=== PATIENT | male | born 1945 | race Caucasian/White ===

== ENCOUNTER 2018-04-07 12:26 | Inpatient (IN) ==
--- NOTE | 2018-04-07 14:11 | Emergency Department Note ---
Disposition Clinical Impression: Thrombocytopenia Leukopenia Qualifiers: Leukopenia type: unspecified Qualified Code(s): D72.819 - Decreased white blood cell count, unspecified UTI (urinary tract infection) Qualifiers: Urinary tract infection type: site unspecified Hematuria presence: without hematuria Qualified Code(s): N39.0 - Urinary tract infection, site not specified Sepsis Qualifiers: Sepsis type: sepsis due to unspecified organism Qualified Code(s): A41.9 - Sepsis, unspecified organism Disposition: Admitted As Inpatient Condition: Good Time of Disposition: 19:03 General Adult HPI - General Chief complaint: ED Shortness of Breath/Dyspnea Stated complaint: hiccups x 2 months. Time Seen by Provider: 04/07/18 13:13 Source: family, EMS Mode of arrival: ambulatory Limitations: no limitations Nursing Notes Reviewed: Yes Vital Signs Reviewed: Yes - History of Present Illness HPI Narrative: Patient is 72-year-old male that presents the emergency department with reports of hiccups. Patient states he has been having intermittent hiccups for the past 2-3 months. Patient states when he gets hiccups become short of breath for approximately 3 seconds. Patient states that she does not have any active chest pain or shortness of breath. at bedside states that his urine has also been smelling strong. States that he has had a history of urinary tract infections. Pain Scale: 10 - Related Data Home Medications Medication Instructions Recorded Confirmed Alfuzosin HCl [Uroxatral] 10 mg PO DAILY 04/29/16 04/07/18 CycloSPORINE, Mod (Neoral) [Neoral] 50 mg PO Q12HR 04/29/16 04/07/18 Ethambutol [Myambutol] 400 mg PO QPM 04/07/18 04/07/18 Ethambutol [Myambutol] 600 mg PO QAM 04/07/18 04/07/18 Gabapentin [Neurontin] 100 mg PO HS 04/07/18 04/07/18 Ondansetron HCl [Zofran] 4 mg PO Q8H PRN 04/07/18 04/07/18 OxyCODONE Immed Rel [Roxicodone 10 10 mg PO Q6H 04/07/18 04/07/18 MG] Rifabutin [Mycobutin] 300 mg PO DAILY 09/17/18 09/17/18 Valganciclovir HCl [Valcyte] 450 mg PO BID 04/07/18 04/07/18 Warfarin [Coumadin] 1 mg PO DAILY 04/07/18 04/07/18 Allergies Allergy/AdvReac Type Severity Reaction Status Date / Time No Known Allergies Allergy Verified 04/07/18 18:29 All systems ED: reviewed and negative except as stated. 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 Absent: respiratory distress, wheezes - Cardiovascular Cardiovascular exam: Present: regular rate, normal rhythm, normal heart sounds, +S1, +S2 - Abdominal Exam Abdominal exam: Present: soft, Non-Tender, normal bowel sounds - Neurological Exam Neurological exam: Present: alert, oriented X3 - Psychiatric Psychiatric exam: Present: normal affect, normal mood - Skin Skin exam: Present: warm, dry, intact Course Vital Signs Temperature 97.7 F 04/07/18 12:49 Pulse Rate 102 04/07/18 12:49 Respiratory Rate 15 04/07/18 12:49 Blood Pressure 109/74 04/07/18 12:49 O2 Sat by Pulse Oximetry 99 04/07/18 12:49 Temperature 98.6 F 04/09/18 06:53 Pulse Rate 93 04/09/18 06:53 Respiratory Rate 16 04/09/18 06:53 Blood Pressure 100/68 04/09/18 06:53 O2 Sat by Pulse Oximetry 99 04/09/18 06:53 Oxygen Delivery Oxygen Delivery Room Air Medical Decision Making - MDM Narrative Medical decision making narrative: Due the patient's into the emergency department with shortness of breath after hiccups we will obtain basic laboratory testing including CBC, BMP, chest x-ray and EKG. We will also obtain a urinalysis due to the spouse reporting there is been a strong odor to the patient's urine. Patient has thrombocytopenia. His platelets are less than 100 which has not been the case before. He has a white blood cell count less than 2 which is never been the case in the past. We will add a lactic acid. We will also provide the patient with IV fluid resuscitation. Lactic acid was 1.1. The patient is a evidence of urinary tract infection. Patient does meet sepsis criteria having intermittent tachycardia with a white blood cell count less than 4 and a source of infection in his urine. Patient will be given a dose or Rocephin and the patient will be admitted to the hospital for further evaluation and management. I spoke with the admitting hospitalist Dr. Nevarez and he has accepted the patient to their service. Patient be admitted to the hospital at this time for further evaluation and management. Chest X-Ray 04/07/18 13:24 IMPRESSION: No significant change in bilateral nodular airspace opacities and right basilar scarring or atelectasis. D/ / Trista Babcock MD / Trista Babcock MD Interpreting Provider: Trista Babcock MD 1600 hrs.: Patient has thrombocytopenia, his platelets have not been less than 100 and they are today. His white count also below 2 which is not better in the past. We will add on a lactate onto him since he was tachycardic. Given some fluids and reassess. I think he should come in and be admitted at this point. 1700:Due to pateint's decrease in WBC and plateletts will admit for further eval and r/o sepsis. He agrees with plan. AWaiting hospitalist. - Lab Data Lab results reviewed: Yes I reviewed the patient's lab results. Result diagrams: 04/08/18 04:15 04/08/18 04:15 Lab Results 04/07/18 04/07/18 04/07/18 Range/Units 14:18 14:18 15:33 WBC 1.3 L (4.3-11.1) K/mcL RBC 2.25 L (4.19-5.50) M/mcL Hgb 8.0 L (12.9-16.9) g/dL Hct 24.2 L (37.5-50.1) % MCV 107.6 H (83.0-100.0) fL MCH 35.6 H (28.0-33.3) pg MCHC 33.1 (31.6-35.5) g/dL RDW 18.0 H (11.5-14.5) % Plt Count 73 L (140-400) K/mcL MPV 12.0 (9.4-12.4) fL Seg Neutrophils % 62.0 % Lymphocytes % 36.0 % Monocytes % 2.0 % Neutrophils # 0.8 L (1.6-8.9) K/mcL Lymphocytes # 0.5 L (0.6-4.6) K/mcL Monocytes # 0.0 (0.0-1.3) K/mcL Platelet Estimate Slight Decrease L (Normal) Immature Plt Fraction 4.0 (1.1-6.1) % Sodium 129 L (136-145) mEq/L Potassium 5.7 H (3.5-5.1) mEq/L Chloride 110 H (98-107) mEq/L Carbon Dioxide 16 L (23-29) mEq/L BUN 32 H (8-23) mg/dL Creatinine 1.73 H (0.70-1.30) mg/dL Est GFR ( Amer) 47 L (> 60) Est GFR (Non-Af Amer) 39 L (> 60) BUN/Creatinine Ratio 18 (6-26) Glucose 89 (70-105) mg/dL Calculated Osmolality 274 L (280-300) Lactic Acid (0.5-2.2) mmol/L Calcium 8.9 (8.6-10.3) mg/dL Urine Color Dark Yellow (Yellow) Urine Clarity Cloudy A (Clear) Urine pH 6.0 (5.0-8.0) pH Units Ur Specific Barton 1.017 (1.010-1.025) Urine Protein Negative (Neg-Trace) mg/dL Urine Glucose (UA) Normal (Normal) mg/dL Urine Ketones Negative (Negative) mg/dL Urine Blood Negative (Negative) Urine Nitrite Negative (Negative) Urine Bilirubin Negative (Negative) Urine Urobilinogen Normal (Normal) mg/dL Ur Leukocyte Esterase Moderate H (Negative) Urine Microscopic RBC 0-3 (0-3) per hpf Urine Microscopic WBC 15-30 H (0-3) per hpf Ur Squamous Epith Cells None Seen (None-Few) per lpf Urine Bacteria Many H (None-Few) per hpf Hyaline Casts None Seen (None-Few) per lpf Ur Culture Indicated? YES A (NO) 04/07/18 Range/Units 16:49 WBC (4.3-11.1) K/mcL RBC (4.19-5.50) M/mcL Hgb (12.9-16.9) g/dL Hct (37.5-50.1) % MCV (83.0-100.0) fL MCH (28.0-33.3) pg MCHC (31.6-35.5) g/dL RDW (11.5-14.5) % Plt Count (140-400) K/mcL MPV (9.4-12.4) fL Seg Neutrophils % % Lymphocytes % % Monocytes % % Neutrophils # (1.6-8.9) K/mcL Lymphocytes # (0.6-4.6) K/mcL Monocytes # (0.0-1.3) K/mcL Platelet Estimate (Normal) Immature Plt Fraction (1.1-6.1) % Sodium (136-145) mEq/L Potassium (3.5-5.1) mEq/L Chloride (98-107) mEq/L Carbon Dioxide (23-29) mEq/L BUN (8-23) mg/dL Creatinine (0.70-1.30) mg/dL Est GFR ( Amer) (> 60) Est GFR (Non-Af Amer) (> 60) BUN/Creatinine Ratio (6-26) Glucose (70-105) mg/dL Calculated Osmolality (280-300) Lactic Acid 1.1 (0.5-2.2) mmol/L Calcium (8.6-10.3) mg/dL Urine Color (Yellow) Urine Clarity (Clear) Urine pH (5.0-8.0) pH Units Ur Specific [place] (1.010-1.025) Urine Protein (Neg-Trace) mg/dL Urine Glucose (UA) (Normal) mg/dL Urine Ketones (Negative) mg/dL Urine Blood (Negative) Urine Nitrite (Negative) Urine Bilirubin (Negative) Urine Urobilinogen (Normal) mg/dL Ur Leukocyte Esterase (Negative) Urine Microscopic RBC (0-3) per hpf Urine Microscopic WBC (0-3) per hpf Ur Squamous Epith Cells (None-Few) per lpf Urine Bacteria (None-Few) per hpf Hyaline Casts (None-Few) per lpf Ur Culture Indicated? (NO) - Radiology Data Radiology results reviewed: Yes I reviewed the patient's radiology results. Chest X-Ray 04/07/18 13:24 IMPRESSION: No significant change in bilateral nodular airspace opacities and right basilar scarring or atelectasis. D/ / Trista Babcock MD / Trista Babcock MD Interpreting Provider: Trista Babcock MD - EKG Data EKG #1 EKG attestation: Yes I reviewed and interpreted this EKG. EKG results narrative: EKG shows a sinus rhythm at a rate of 96 bpm, [place] interval of 172, curious duration of 155, QTC of 481. There is evidence of a left bundle branch block. This was compared to previous EKG on 02/20/18 which showed a sinus tachycardia with a left bundle-branch block. There is no evidence of STEMI on EKG. Attestation Statement - Attestation Attestation: This documentation is done with the assistance of Dragon dictation. Despite efforts made to ensure accuracy, there may be inaccuracies in flatwork folder or spelling and typographical errors. I examined this patient and my medical decision-making was reviewed with the Resident Physician. I agree with the documented findings, disposition and treatment plan as described except to the extent set forth below. Patient seen and evaluated by Dr. Banegas and myself, I agree with his evaluation management plan, soup rescue the patient's stay. Patient presents today with having hiccups it has been going on for 2-3 months. He says they will come on he gets a little bit of pressure in his abdomen happens and they go away. He says been getting just tired of having this. He does see GI and primary caregiver has not seen him for this. Denies any chest pain or shortness of breath. We will get labs chest x-ray and reassess. I am uncertain that we will be able to get rid of those hiccups while he is here by think following up with GI as a good plan. He is in agreement.
[2018-04-07 14:48] LABS: Mean Corpuscular Volume 107.6 fL (83.0-100.0)
[2018-04-07 14:54] LABS: Hematocrit 24.2 % (37.5-50.1); Mean Corpuscular HGB Conc 33.1 g/dL (31.6-35.5); Mean Corpuscular Hemoglobin 35.6 pg (28.0-33.3); Red Blood Count 2.25 M/mcL (4.19-5.50)
[2018-04-07 14:55] LABS: Platelet Count 73 K/mcL (140-400)
[2018-04-07 15:01] LABS: Calcium 8.9 mg/dL (8.6-10.3); Potassium 5.7 mEq/L (3.5-5.1)
[2018-04-07 15:43] LABS: Lymphocytes # 0.5 K/mcL (0.6-4.6); Neutrophils # 0.8 K/mcL (1.6-8.9)
[2018-04-07 15:46] LABS: Platelet Estimate Slight Decrease (Normal)
[2018-04-07 15:49] LABS: Bilirubin,Urine Negative (Negative); Blood,Urine Negative (Negative); Clarity,Urine Cloudy (Clear); Color,Urine Dark Yellow (Yellow); Glucose,Urine (UA) Normal (Normal); Ketones,Urine Negative (Negative); Leukocyte Esterase,Urine Moderate (Negative); Nitrite,Urine Negative (Negative); Protein,Urine Negative (Neg-Trace); Specific Gravity,Urine 1.017 (1.010-1.025); Urobilinogen,Urine Normal (Normal)
[2018-04-07 15:50] LABS: Bacteria,Urine Many per hpf (None-Few); Hyaline Casts,Urine None Seen per lpf (None-Few); RBC,Urine 0-3 per hpf (0-3); Squamous Epithelial Cell,Urine None Seen per lpf (None-Few); WBC,Urine 15-30 per hpf (0-3)
[2018-04-07] MEDS ORDERED: 0.9 % Sodium Chloride 1,000 ML IVC ONE (16:18)
[2018-04-07] MEDS ORDERED: cefTRIAXone 1,000 MG in Water for inj. (sterile) 20 ML 10 ML IVP ONE (17:51)
[2018-04-07] MEDS ORDERED: Naloxone 0.4 MG/ML INJ IVP PRN (17:52)
--- NOTE | 2018-04-07 18:20 | Internal Med History&Physical ---
Date of Encounter: 04/07/18 Time of Encounter: 18:05 Internal Medicine - H&P: HPI Chief complaint: weakness, hiccup Admitted From: Home History of present illness: Mr. Muhammad is a 72 year old male past medical history of renal transplant, diabetes not on meds, recurrent UTI, recent dx of RUE DVT at [facility], presented to the ED with 2-3 months history of hiccup. Additional history from his significant other is that he has been gradually getting weaker for the last 2 weeks. Patient denies any chest pain, shortness of breath, cough, sputum production, or abdominal pain but does admit to dribbling, incomplete voiding, and intermittent tingling in burning upon urination. No fever/chills or N/V. Denies any flank pain. No sick contacts. Denies any joint pain or rash. Patient states that he was recently diagnosed with UTI and was prescribed 5 day course of Augmentin which did not provide any relief. In the ED, he was afebrile and hemodynamically stable. Labwork showed white blood cell count of 1.3, hemoglobin of 8, platelets 73, potassium 5.7, Cr 1.73 (baseline shows wide fluctuation between 1-2.1 for the last 6 months), and normal lactic acid. Urinalysis showed moderate amount of leukocyte esterase. Patient was given IV fluid and IV Rocephin and admitted for further management. Past Med Surg Social Fam HX - Past Medical History Attestation: Yes The following information was validated with the patient. Medical history: diabetes, hypertension, renal disease Additional medical history: "Bone infection". AV fistula left arm. Hernia. Diabetic ulcer to left foot. Athletes feet. Dusphagia Psychiatric history: no psych history - Past Surgical History Surgical History: transplant (Kidney 03/2007), other (Eye surgery) Additional surgical history: R kidney transplant, eye surgery - Social History Smoking Status: Never smoker Smokeless Tobacco Status: Yes (Snuff) Alcohol use: none Drug use: none - Family History Mother Living Status: Hx Family Cardiac Disorders: Yes Father Living Status: Internal Medicine - H&P: Meds Cyclobenzaprine [Flexeril] 10 mg PO TID #30 tablet 04/29/15 [Rx] Alfuzosin HCl [Uroxatral] 10 mg PO DAILY 04/29/16 [History] Aspirin 81 mg PO DAILY 04/29/16 [History] CycloSPORINE, Mod (Neoral) [Neoral] 50 mg PO Q12HR 04/29/16 [History] Losartan Potassium [Cozaar] 25 mg PO BID 04/29/16 [History] Magnesium Oxide [Mgo] 400 mg PO DAILY 04/29/16 [History] Mycophenolate Sodium [Myfortic] 720 mg PO DAILY 04/29/16 [History] Ferrous Sulfate [Iron] 325 mg PO BID 60 Days capsule.er 05/03/16 [Rx] glipiZIDE [Glucotrol] 5 mg PO BIDWM 14 Days tablet 05/03/16 [Rx] Sucralfate [Carafate] 1 gm PO QID 02/12/17 [History] Diclofenac Sodium [Voltaren] 1 appl TP AD 08/15/17 [History] Epoetin [place] [Procrit] 10,000 unit SQ QWEEK 08/15/17 [History] Sodium Polystyrene Sulfonate [Kayexalate] 1 each PO AD 08/15/17 [History] Doxycycline 100 mg PO BID #14 capsule 01/09/18 [Rx] chlorproMAZINE [Thorazine] 25 mg PO TID PRN #12 tablet 01/09/18 [Rx] Mupirocin [Bactroban Oint] 1 appl TP BID 7 Days #1 tube 02/03/18 [Rx] DiphenhydraMINE [Benadryl] 25 mg PO Q8HR #21 capsule 02/20/18 [Rx] Metoclopramide [Reglan] 10 mg PO TID #21 tablet 02/20/18 [Rx] 3 Allergy/AdvReac Type Severity Reaction Status Date / Time No Known Allergies Allergy Verified 02/20/18 15:50 All Systems PM: A 10-system review of systems was performed and is negative for pertinent findings except as documented above in the HPI. - Constitutional Vitals: Temp Pulse Resp BP Pulse Ox 97.7 F 92 14 145/81 100 04/07/18 13:44 04/07/18 17:43 04/07/18 17:43 04/07/18 17:43 04/07/18 17:43 Exam: General: Alert and oriented, not in acute distress. HEENT:EOM, pupils equal, round and reactive. Cardiovascular:Normal S1 & S2, No JVD. Pulse regular. Lungs: clear to auscultation, no wheezes/rales Abdomen:Soft, non-tender, no rigidity. No CVA tenderness Extremities:No deformity or swelling Neurological:Normal cognition and motor skills. Non-focal Skin:Normal color, no rash, no lesions. Pulses:Carotid and radial pulses normal +2. Rest of the physical exam is non contributory Internal Med - H&P Results - Labs CBC & Chem 7: 04/07/18 14:18 04/07/18 14:18 Labs: Short CBC 04/07/18 Range/Units 14:18 WBC 1.3 L (4.3-11.1) K/mcL Hgb 8.0 L (12.9-16.9) g/dL Hct 24.2 L (37.5-50.1) % Plt Count 73 L (140-400) K/mcL Neutrophils # 0.8 L (1.6-8.9) K/mcL BMP 04/07/18 14:18 Sodium 129 L Potassium 5.7 H Chloride 110 H Carbon Dioxide 16 L BUN 32 H Creatinine 1.73 H Glucose 89 Calcium 8.9 Urine 04/07/18 Range/Units 15:33 Urine Color Dark Yellow (Yellow) Urine Clarity Cloudy A (Clear) Urine pH 6.0 (5.0-8.0) pH Units Ur Specific Melba 1.017 (1.010-1.025) Urine Protein Negative (Neg-Trace) mg/dL Urine Glucose (UA) Normal (Normal) mg/dL - Impressions ITS Impressions Chest X-Ray 04/07/18 13:24 IMPRESSION: No significant change in bilateral nodular airspace opacities and right basilar scarring or atelectasis. D/ / Trista Babcock MD / Trista Babcock MD Interpreting Provider: Trista Babcock MD - Assessment and plan (1) Complicated UTI (urinary tract infection) Current Visit: Yes Status: Acute Assessment and plan: Presented with generalized weakness, leukopenia, and urinalysis positive for leukocyte esterase. Failed outpatient treatment with Augmentin. Last urine culture grew Klebsiella pneumoniae and Enterococcus faecalis Was given IV Rocephin in the ED, will add IV Vanc for enterococcal coverage -> pharmacy to dose complains of lower urinary tract symptoms, will start flomax (2) Hyperkalemia Current Visit: Yes Status: Acute Assessment and plan: no associated EKG changes will give 1 dose of kayexalate and start beta-agonists would try to avoid insulin as his sugar is borderline low and the level is not critical without EKG changes repeat level tomorrow (3) Pancytopenia Current Visit: Yes Status: Acute Assessment and plan: Hb and WBC have been noted to be chronically low but Plt used to be normal Concerning for severe infection in view of macrocytosis, may also be due to MDS no signs of bleeding, would monitor Hb and Plt Monitor WBC on IV Abx (4) 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 Current Visit: Yes Status: Chronic Assessment and plan: It is reported that he was recently diagnosed with right upper extremity DVT at [facility] about 5-6 months ago and he has been placed on warfarin thereafter check PT/INR resume home meds once reconciled Qualifiers: Affected thrombotic vein of extremity: unspecified vein of extremity Chronicity: acute Qualified Code(s): I82.621 - Acute embolism and thrombosis of deep veins of right upper extremity (5) Diabetes mellitus Current Visit: No Status: Chronic Assessment and plan: not on meds, blood glucose 89 Qualifiers: Diabetes mellitus type: type 2 Diabetes mellitus half-way insulin use: without half-way use Diabetes mellitus complication status: with kidney complications Diabetes mellitus complication detail: with chronic kidney disease Chronic kidney disease stage: unspecified stage Qualified Code(s): E11.22 - Type 2 diabetes mellitus with diabetic chronic kidney disease (6) Renal transplant, status post Current Visit: No Status: Chronic Assessment and plan: unsure what immunosuppressant that the patient is on to be followed up with med rec (7) DVT prophylaxis Current Visit: No Status: Acute Assessment and plan: resume warfarin once reconciled - Time Spent With Patient Total time spent is greater than 50% in coordination of care (as documented) at patient's floor/unit and/or counseling patient: Greater than 35 minutes
[2018-04-07] MEDS: Ringers Solution, Lactated 1,000 ML IVC SCH (19:10)
[2018-04-07] MEDS: Ipratropium/Albuterol Neb 3 ML IH SCH (21:39)
[2018-04-07 21:45] LABS: Prothrombin Time 33.8 Seconds (9.4-12.1)
[2018-04-07] MEDS: *HR* Warfarin 1 MG TABLET PO SCH (23:14)
[2018-04-07] MEDS: Gabapentin 100 MG CAPSULE PO SCH (23:14)
[2018-04-07] MEDS: CycloSPORINE, Mod (Neoral) 25 MG CAPSULE PO SCH (23:45)
[2018-04-07] MEDS: VALGANCICLOVIR 450 MG PO SCH (23:47)
[2018-04-08] MEDS: Ipratropium/Albuterol Neb 3 ML IH SCH ×4 (00:03→11:29)
--- NOTE | 2018-04-08 04:34 | Event Note ---
Date of Encounter: 04/08/18 Time of Encounter: 04:33 72 y/o male hx of kidney transplant admitted for sepsis due to UTI - I was paged to bedside by RN because found left heel ulcer previously undocumented. 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 PCP has been treating wound for 3 weeks Exam : eschar 6-7 cm in diameter with out drainage. Plan - wound nurse consult - I called pharmacy because order for vancomycin was not continued in system and they advised to re-consult pharm. Per pharm based on kidney function will get next dose Saturday evening.
[2018-04-08] MEDS: Ringers Solution, Lactated 1,000 ML IVC SCH (04:46)
[2018-04-08 04:47] LABS: Hemoglobin 7.7 g/dL (12.9-16.9); Lymphocytes # 0.4 K/mcL (0.6-4.6); Lymphocytes % 39.3 %; Mean Corpuscular HGB Conc 33.5 g/dL (31.6-35.5); Mean Corpuscular Hemoglobin 36.2 pg (28.0-33.3); Mean Platelet Volume 10.2 fL (9.4-12.4); Monocytes % 1.1 %; Neutrophils # 0.5 K/mcL (1.6-8.9); Red Blood Count 2.13 M/mcL (4.19-5.50); Red Cell Distribution Width 17.4 % (11.5-14.5); Segmented Neutrophils % 59.6 %
[2018-04-08 04:48] LABS: Platelet Count 55 K/mcL (140-400)
[2018-04-08 05:06] LABS: Calcium 8.2 mg/dL (8.6-10.3); Magnesium 1.3 mg/dL (1.6-2.6); Potassium 5.2 mEq/L (3.5-5.1)
[2018-04-08 05:17] LABS: Anisocytosis 1+ (Not Present); Platelet Estimate Decreased (Normal)
[2018-04-08] MEDS: VALGANCICLOVIR 450 MG PO SCH ×2 (09:34→21:57)
[2018-04-08] MEDS: CycloSPORINE, Mod (Neoral) 25 MG CAPSULE PO SCH ×2 (09:35→21:56)
--- NOTE | 2018-04-08 12:55 | Electrocardiograph Report ---
[facility] Test Date: 2018-04-07 Pat Name: Nate Muhammad Department: EXAM21 Room: 3A32 Gender: M Parking Ramp Attendant: : 1945 Requested By: Kwadwo Goldstein Order Number: [id number] Reading MD: Jeff Blanchard Measurements Intervals [place] Rate: 96 P: 78 MT: 172 QRS: -40 QRSD: 155 T: 119 QT: 380 QTc: 481 Interpretive Statements Sinus rhythm Left bundle branch block Electronically Signed On 04-08-2018 12:54:03 EDT by Jeff Blanchard
[2018-04-08] MEDS ORDERED: Ipratropium/Albuterol Neb 3 ML IH PRN (13:02)
--- NOTE | 2018-04-08 13:29 | Internal Med Progress Note ---
Hospitalist Progress Note - Encounter Date of Encounter: 04/08/18 Time of Encounter: 13:27 - Subjective Interval History: Pt states he wants to go home. at bedside. I explained to both pt and his that he presented with sepsis, NEREYDA, and has been hypotensive and could be life threatening if he leaves. Pt denies fever, chills, positive nausea but no vomiting, and no diarrhea. Denies CP or SOB. - Exam Vitals: Temp Pulse Resp BP Pulse Ox 98.7 F 96 18 98/52 95 04/08/18 10:24 04/08/18 10:24 04/08/18 10:24 04/08/18 10:24 04/08/18 10:24 Exam: General: Alert and oriented, not in acute distress. HEENT:EOM, pupils equal, round and reactive. Cardiovascular:Normal S1 & S2, No JVD. Pulse regular. Lungs: clear to auscultation, no wheezes/rales Abdomen:Soft, non-tender, no rigidity. No CVA tenderness Extremities:No deformity or swelling Neurological:Normal cognition and motor skills. Non-focal Skin:Normal color, no rash, no lesions. ? jaundice Pulses:Carotid and radial pulses normal +2. Rest of the physical exam is non contributory - Assessment and Plan (1) Complicated UTI (urinary tract infection) Current Visit: Yes Status: Acute Assessment and Plan: Pt has hx of recurrent UTI. Past urine cultures had positive for Klebsiella pneu and Ecoli both of which had been sensitive to cephalosporins. Started on Rocephin on this admission and will continue for now. Awaiting urine sensitivity (2) Hyperkalemia Current Visit: Yes Status: Acute Assessment and Plan: no associated EKG changes. PT received 1 dose of kayexalate. K down form 5.7 to 5.2. Beta-agonists was also added by prior physician, however pt had been refusing. 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 Will requests pharmacy to dose. Will monitor daily PT/INR. (4) Leukopenia Current Visit: Yes Status: Acute Assessment and Plan: Consulting oncology to see. (5) Thrombocytopenia Current Visit: Yes Status: Acute Assessment and Plan: Oncology consulted. (6) Renal transplant, status post Current Visit: No Status: Chronic Assessment and Plan: Reviewed pt';s medications with pharmacy. Pt is on Neoral. states pt was on some other medication but it was discontinued because he developed bone infection. Pt's does not recall the name of the medication. Pt is also on Ethambutol, Rifabutin, and Valcyte probably for prophylaxis. denies prior knowledge of pt receiving treatment for TB. (7) Singultus Current Visit: Yes Status: Acute Assessment and Plan: PT presented to the ED with 2-3 months history of hiccup which has so far resolved. DVT Prophylaxis: Coumadin - Summary of Assessment and Plan Summary of Assessment and Plan: Mr. Muhammad is a 72 year old male past medical history of renal transplant, diabetes not on meds, recurrent UTI, recent dx of RUE DVT at [facility], presented to the ED with 2-3 months history of hiccup. Additional history from his significant other is that he has been gradually getting weaker for the last 2 weeks. Lab work revealed white blood cell count of 1.3, hemoglobin of 8, platelets 73, potassium 5.7, Cr 1.73 (baseline shows wide fluctuation between 1-2.1 for the last 6 months), and normal lactic acid. Urinalysis showed moderate amount of leukocyte esterase. Patient was given IV fluid and IV Rocephin and admitted for further management. - Time Spent with Patient Total time spent is greater than 50% in coordination of care (as documented) at patient's floor/unit and/or counseling patient: 25 - 35 minutes Plan of Care Discussed with: patient Internal Medicine: Result - Labs CBC & Chem 7: 04/08/18 04:15 04/08/18 04:15 Labs: Short CBC 04/08/18 Range/Units 04:15 WBC 0.9 L* (4.3-11.1) K/mcL Hgb 7.7 L (12.9-16.9) g/dL Hct 23.0 L (37.5-50.1) % Plt Count 55 L (140-400) K/mcL Neutrophils # 0.5 L (1.6-8.9) K/mcL BMP 04/08/18 04:15 Sodium 131 L Potassium 5.2 H Chloride 112 H Carbon Dioxide 14 L BUN 29 H Creatinine 1.49 H Glucose 87 Calcium 8.2 L - ABG Interpretation ABG results: PT/INR, D-dimer PT 33.8 Seconds (9.4-12.1) H 04/07/18 21:26 Consult Discharge Plan - Plan Referrals: Ramiro Chavez Jr, MD [Primary Care Provider] - (3) 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 Qualifiers: Affected thrombotic vein of extremity: unspecified vein of extremity Chronicity: acute Qualified Code(s): I82.621 - Acute embolism and thrombosis of deep veins of right upper extremity (4) Leukopenia Qualifiers: Leukopenia type: unspecified Qualified Code(s): D72.819 - Decreased white blood cell count, unspecified
[2018-04-08 13:31] LABS: Prothrombin Time 34.4 Seconds (9.4-12.1)
[2018-04-08 13:41] LABS: Folate 11.2 ng/mL (3.0-16.0)
--- NOTE | 2018-04-08 13:50 | Nephrology Consult Note ---
Date of Encounter: 04/08/18 Time of Encounter: 13:20 Assessment and Plan (1) Acute kidney injury Current Visit: Yes Status: Acute Acute kidney injury on transplanted Kidney Patient presents with elevated serum creatinine, non-anion gap metabolic acidosis, hyperkalemia Etiology is unknown although patient is at high risk for serious complications and possible acute rejection Recent history of UTI, current UA appears to also have UTI present Received 2L fluid throughout his stay thus far and serum creatinine has been dropping appropriately Plan -Recommend immediate transfer of this patient to [facility] for further management. This patient is at high risk for acute rejection, and we as a facility do not have the appropriate resources to complete workup and treat this patient in a timely manner. I have spoken at length with the patient and his regarding the risks of staying at [facility], which include high risk for rejection and loss of kidney graft, and they did sound receptive. I spoke with the hospitalist, Dr. Benedict, about this as well who mentioned that she had already spoken with Dr. Oden as well as the family who were not receptive, and she had concern that the family would be unwilling to transfer still as she felt that she had given warning as to the severity of the patient's condition, including risk of . She agrees to discuss this course of action with the family again, however. -Agree with hydration as tolerated by the patient -Avoid nephrotoxic agents as able, such as vancomycin (2) Renal transplant, status post Current Visit: No Status: Chronic S/p right renal transplant 04/08/07 Patient is currently treated with cyclosporine 50mg BID Recommend prompt transfer to [facility] for further management (3) Pancytopenia Current Visit: Yes Status: Acute Pancytopenia, etiology unclear however likely mutlifactorial Suspect that this is secondary to medication effect, specifically Rifabutin vs cyclosporin Additionally, infection/sepsis can cause this pancytopenia Given immunosuppressed nature of the patient's condition, best management can be offered at transplant center (4) Urinary tract infection Current Visit: Yes Status: Acute Suspected UTI vs. Transplant Ureteritis UA does demonstrate many bacteria, leukocyte esterase The patient has been started on Vancomycin and Rocephin Cultures pending, recommend avoidance of Vancomycin if possible Qualifiers: Urinary tract infection type: site unspecified Hematuria presence: without hematuria Qualified Code(s): N39.0 - Urinary tract infection, site not specified (5) Hyperkalemia Current Visit: Yes Status: Acute Hyperkalemia in setting of NEREYDA This problem has been correcting itself with IV Fluids Will continue to monitor, hope to improve NEREYDA Consider Kayexelate if acutely worsens History of Present Illness - Reason for Consult Consult date: 04/08/18 Acute Kidney Injury Requesting physician: Ginna Benedict - Chief Complaint UTI - History of Present Illness Mr. Muhammad is a 72yo man with history of DM, HTN, DVT about 5mo ago, and right renal transplant on 04/08/2007 who presented to the ED for complaints of recurrent UTI. He is a patient of Dr. Chavez, and says that for the past month he has been having symptoms of increased urinary frequency, burning urination, and fatigue. In association with this, he has also had some chills, although he denies fevers. He says that he visited his PCP about 2.5 weeks ago and was given an oral antibiotic with modest improvement, but that it began to worsen again in the past several days. Significantly, the patient does have history of right renal transplant, for which he follows with Dr. Read at [facility] comprehensive transplant center. According to his he was last seen at the transplant center in September when he was last seen at [facility]. His current anti-rejection medication regimen includes cyclosporine at 50mg BID. Additionally, the patient has been treated for MAC osteomyelitis with ethambutol and Rifabutin, and has had downtrending of cell lines for several months. His only other complaint is hiccups which have been relatively chronic over the past couple of months. The patient was apparently offered transfer to [facility] on arrival, however he refused with his . Past Med Surg Social Fam HX - Past Medical History Medical history: diabetes, hypertension, renal disease Additional medical history: "Bone infection". AV fistula left arm. Hernia. Diabetic ulcer to left foot. Athletes feet. Dusphagia Psychiatric history: no psych history - Past Surgical History Surgical History: transplant, other Additional surgical history: R kidney transplant, eye surgery - Social History Smoking Status: Never smoker Smokeless Tobacco Status: Yes (Snuff) Alcohol use: none Drug use: none - Family History Mother Living Status: Hx Family Cardiac Disorders: Yes Father Living Status: Medications and Allergies Alfuzosin HCl [Uroxatral] 10 mg PO DAILY 04/29/16 [History] CycloSPORINE, Mod (Neoral) [Neoral] 50 mg PO Q12HR 04/29/16 [History] Ethambutol [Myambutol] 400 mg PO QPM 04/07/18 [History] Ethambutol [Myambutol] 600 mg PO QAM 04/07/18 [History] Gabapentin [Neurontin] 100 mg PO HS 04/07/18 [History] Ondansetron HCl [Zofran] 4 mg PO Q8H PRN 04/07/18 [History] OxyCODONE Immed Rel [Roxicodone 10 MG] 10 mg PO Q6H 04/07/18 [History] Rifabutin [Mycobutin] 300 mg PO DAILY 04/07/18 [History] Valganciclovir HCl [Valcyte] 450 mg PO BID 04/07/18 [History] Warfarin [Coumadin] 1 mg PO DAILY 04/07/18 [History] 3 Allergy/AdvReac Type Severity Reaction Status Date / Time No Known Allergies Allergy Verified 04/07/18 18:29 Review of Systems Constitutional: chills, fatigue, no anorexia, no fever(s), no frequent falls, no weakness Eyes: bilateral: blurred vision (patient denies) Nose, mouth and throat: no dizziness, no headache(s) Cardiovascular: dyspnea (occasional), leg edema, no chest pain, no palpitations Respiratory: no cough, no dyspnea Gastrointestinal: other (hiccups which are constant for several months), no abdominal pain, no change in bowel habits, no diarrhea Genitourinary Male: dysuria, urinary frequency, no flank pain, no urinary incontinence, no urinary urgency Musculoskeletal: no muscle weakness, no numbness Integumentary: no striae Neurological: no confusion, no convulsions, no dizziness Psychiatric: no depression, no difficulty concentrating Endocrine: as per HPI Hematologic/Lymphatic: no easy bruising, no lymphadenopathy Exam - Vital Signs Vital signs: Initial Vital Signs Temp Pulse Resp BP Pulse Ox 97.7 F 102 15 109/74 99 04/07/18 12:49 04/07/18 12:49 04/07/18 12:49 04/07/18 12:49 04/07/18 12:49 Vital Signs - Last 8 Hours Temp Pulse Resp BP Pulse Ox 04/08/18 10:24 98.7 F 96 18 98/52 95 04/08/18 06:59 98.3 F 76 17 123/75 98 Intake and Output 04/07/18 04/08/18 04/08/18 23:59 07:59 15:59 Intake Total 950 / 950 1480 / 1480 Output Total 0 / 0 0 / 0 Balance 950 / 950 1480 / 1480 Intake: IV Fluids 950 / 950 1000 / 1000 Lactated Ringers 1,000 ML @ 125 950 / 950 1000 / 1000 mls/hr IVC .Q8H MARYCARMEN Rx#: [id number] Rocephin 1,000 MG In Water for inj. (sterile) 10 ML @ 600 mls/ hr IVP ONCE ONE Rx#:[id number] Oral 0 / 0 480 / 480 Output: Urine 0 / 0 0 / 0 Other: Meal Lunch Percent of Meal Consumed 100% # Voids 2 Weight 58 kg 58 kg Blood Glucose* 113 91 102 Patient Weight 04/08/18 23:59 Weight 58 kg - General Appearance General appearance: well-developed, appears started age, frail EENT: ATNC, mucous membranes moist Neck: no JVD, no thyromegaly, supple Respiratory: no kyphosis, no scoliosis, clear Cardiology: no murmurs, no rub, no gallops, no edema, regular rate, regular rhythm Gastrointestinal: normoactive bowel sounds, no tenderness, no guarding, no organomegaly, no masses Integumentary: no rash, warm and dry Neurologic: no focal deficit, alert and oriented x3 Musculoskeletal: no deformities, no erythema, no cyanosis, no clubbing Psychiatric: mood/affect appropriate, cooperative Results - Lab Results 04/08/18 04:15 04/08/18 04:15 Most recent lab results Calcium 8.2 mg/dL (8.6-10.3) L 04/08/18 04:15 Magnesium 1.3 mg/dL (1.6-2.6) L 04/08/18 04:15 Consult Discharge Plan - Plan Referrals: Ramiro Chavez Jr, MD [Primary Care Provider] -
[2018-04-08 13:54] LABS: Albumin 2.1 g/dL (3.5-5.7); Albumin/Globulin Ratio 0.7 (1.1-2.2); Bilirubin,Direct 0.4 mg/dL (0.0-0.2); Bilirubin,Indirect 0.3 mg/dL (0.0-1.2); Bilirubin,Total 0.7 mg/dL (0.3-1.0); Globulin 3.1 g/dL (2.4-3.5); Total Protein 5.2 g/dL (6.4-8.9)
[2018-04-08] MEDS ORDERED: Warfarin perPT PO PRN (18:00)
[2018-04-08] MEDS ORDERED: Aminoglycoside Consult 1 EACH MC ONE (19:00)
--- NOTE | 2018-04-08 19:52 | Oncology Inp Consult Note ---
<Saji Pichardo - Last Filed: 04/08/18 19:49> Date of Encounter: 04/08/18 Time of Encounter: 19:49 Assessment and Plan (1) Pancytopenia Status: Acute Assessment and plan: She presents with pancytopenia white count of 0.9, macrocytic anemia, thrombocytopenia. No evidence of active bleeding. Review the patient's outpatient labs reveals that this is relatively new. Given his macrocytosis there is concern for a primary bone marrow dysfunction. Etiology could be MDS, bone marrow infection with Mycobacterium avium, drug-related bone marrow suppression. Continue to monitor patient labs over the next several days. If he does not respond then would recommend bone marrow biopsy. Transfuse keep hemoglobin greater than 7, platelets greater than 10,000 unless evidence of active bleeding. (2) Immunosuppressed status Status: Acute Assessment and plan: Currently on cyclosporine. We will check levels. 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 Currently on ethambutol and rifabutin. These medications can cause leukopenia and thrombocytopenia. Given the patient's immunosuppressed status and these medications would consider infectious disease consult. 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 Currently on warfarin. Continue with goal INR of 2.0-3.0. Qualifiers: Affected thrombotic vein of extremity: unspecified vein of extremity Chronicity: acute Qualified Code(s): I82.621 - Acute embolism and thrombosis of deep veins of right upper extremity - Data of Consult Patient: new to practice Consult date: 04/08/18 Requesting Physician: Héctor Dodd Primary Care Provider: Ramiro Chavez Jr, MD - Consult Narrative Reason for consult: Pancytopenia History of present illness: Mr. 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 Presents with generalized weakness. He does report some difficulty urinating. Denies fever, chills, pain, recent sick contacts. He recently completed a course of outpatient antibiotics for urinary tract infection. Past Med Surg Social Fam HX - Past Medical History Medical history: diabetes, hypertension, renal disease Additional medical history: "Bone infection". AV fistula left arm. Hernia. Diabetic ulcer to left foot. Athletes feet. Dusphagia Psychiatric history: no psych history - Past Surgical History Surgical History: transplant, other Additional surgical history: R kidney transplant, eye surgery - Social History Smoking Status: Never smoker Smokeless Tobacco Status: Yes (Snuff) Alcohol use: none Drug use: none - Family History Mother Living Status: Hx Family Cardiac Disorders: Yes Father Living Status: Medications and Allergies Alfuzosin HCl [Uroxatral] 10 mg PO DAILY 04/29/16 [History] CycloSPORINE, Mod (Neoral) [Neoral] 50 mg PO Q12HR 04/29/16 [History] Ethambutol [Myambutol] 400 mg PO QPM 04/07/18 [History] Ethambutol [Myambutol] 600 mg PO QAM 04/07/18 [History] Gabapentin [Neurontin] 100 mg PO HS 04/07/18 [History] Ondansetron HCl [Zofran] 4 mg PO Q8H PRN 04/07/18 [History] OxyCODONE Immed Rel [Roxicodone 10 MG] 10 mg PO Q6H 04/07/18 [History] Rifabutin [Mycobutin] 300 mg PO DAILY 04/07/18 [History] Valganciclovir HCl [Valcyte] 450 mg PO BID 04/07/18 [History] Warfarin [Coumadin] 1 mg PO DAILY 04/07/18 [History] 3 Allergy/AdvReac Type Severity Reaction Status Date / Time No Known Allergies Allergy Verified 04/07/18 18:29 All systems: reviewed and no additional remarkable complaints except as stated Oncology - Exam - Constitutional Vitals: Temp Pulse Resp BP Pulse Ox 97.8 F 103 14 99/74 100 04/08/18 19:15 04/08/18 19:15 04/08/18 19:15 04/08/18 19:15 04/08/18 19:15 General appearance: no acute distress - Respiratory Respiratory exam: Present: decreased breath sounds. Absent: rales, rhonchi - Cardiovascular Cardiovascular exam: Present: RRR. Absent: systolic murmur - GI/Abdominal GI/Abdominal exam: Present: soft. Absent: tenderness Oncology - Results Labs: 3 04/08/18 04/08/18 04/08/18 13:16 12:22 12:22 WBC RBC Hgb Hct MCV MCH MCHC RDW Plt Count MPV Immature Gran % Seg Neutrophils % Lymphocytes % Monocytes % Eosinophils % Basophils % Neutrophils # Lymphocytes # Monocytes # Eosinophils # Basophils # Platelet Estimate Anisocytosis PT 34.4 H INR 3.0 Sodium Potassium Chloride Carbon Dioxide BUN Creatinine Est GFR ( Amer) Est GFR (Non-Af Amer) BUN/Creatinine Ratio Glucose POC Glucose Calculated Osmolality Calcium Magnesium Iron 107 % Saturation 76 H Transferrin 101 L Ferritin 956 H Total Bilirubin 0.7 Direct Bilirubin 0.4 H Indirect Bilirubin 0.3 AST 15 ALT 4 L Alkaline Phosphatase 75 Serum Total Protein 5.2 L Albumin 2.1 L Globulin 3.1 Albumin/Globulin Ratio 0.7 L Vitamin B12 400 Folate 11.2 3 04/08/18 04/08/18 04/08/18 07:20 04:15 04:15 WBC 0.9 L* RBC 2.13 L Hgb 7.7 L Hct 23.0 L MCV 108.0 H MCH 36.2 H MCHC 33.5 RDW 17.4 H Plt Count 55 L MPV 10.2 Immature Gran % 0.0 Seg Neutrophils % 59.6 Lymphocytes % 39.3 Monocytes % 1.1 Eosinophils % 0.0 Basophils % 0.0 Neutrophils # 0.5 L Lymphocytes # 0.4 L Monocytes # 0.0 Eosinophils # 0.0 Basophils # 0.0 Platelet Estimate Decreased L Anisocytosis 1+ A PT INR Sodium 131 L Potassium 5.2 H Chloride 112 H Carbon Dioxide 14 L BUN 29 H Creatinine 1.49 H Est GFR ( Amer) 56 L Est GFR (Non-Af Amer) 46 L BUN/Creatinine Ratio 19 Glucose 87 POC Glucose 91 Calculated Osmolality 277 L Calcium 8.2 L Magnesium 1.3 L Iron % Saturation Transferrin Ferritin Total Bilirubin Direct Bilirubin Indirect Bilirubin AST ALT Alkaline Phosphatase Serum Total Protein Albumin Globulin Albumin/Globulin Ratio Vitamin B12 Folate 3 04/07/18 04/07/18 21:26 21:12 WBC RBC Hgb Hct MCV MCH MCHC RDW Plt Count MPV Immature Gran % Seg Neutrophils % Lymphocytes % Monocytes % Eosinophils % Basophils % Neutrophils # Lymphocytes # Monocytes # Eosinophils # Basophils # Platelet Estimate Anisocytosis PT 33.8 H INR 3.0 Sodium Potassium Chloride Carbon Dioxide BUN Creatinine Est GFR ( Amer) Est GFR (Non-Af Amer) BUN/Creatinine Ratio Glucose POC Glucose 113 H Calculated Osmolality Calcium Magnesium Iron % Saturation Transferrin Ferritin Total Bilirubin Direct Bilirubin Indirect Bilirubin AST ALT Alkaline Phosphatase Serum Total Protein Albumin Globulin Albumin/Globulin Ratio Vitamin B12 Folate Consult Discharge Plan - Plan Referrals: Ramiro Chavez Jr, MD [Primary Care Provider] - <Katarzyna Cruz S - Last Filed: 04/09/18 17:45> Date of Encounter: 04/08/18 - Data of Consult Requesting Physician: Héctor Dodd Primary Care Provider: Ramiro Chavez Jr, MD - Consult Narrative History of present illness: Mr. Muhammad is a 72 year old male Oncology - Exam - Constitutional Vitals: Temp Pulse Resp BP Pulse Ox 98.3 F 98 16 109/64 99 04/09/18 11:28 04/09/18 16:36 04/09/18 11:28 04/09/18 13:10 04/09/18 16:36 Oncology - Results Labs: 3 04/09/18 04/09/18 04/09/18 15:23 07:37 07:00 WBC 0.8 L* RBC 1.96 L Hgb 7.1 L Hct 21.6 L MCV 110.2 H MCH 36.2 H MCHC 32.9 RDW 17.7 H Plt Count 41 L MPV 9.1 L Immature Gran % Seg Neutrophils % 62.0 Lymphocytes % 38.0 Monocytes % Eosinophils % Basophils % Neutrophils # 0.5 L Lymphocytes # 0.3 L Monocytes # Eosinophils # Basophils # Platelet Estimate Decreased L Anisocytosis 1+ A PT INR Sodium Potassium Chloride Carbon Dioxide BUN Creatinine Est GFR ( Amer) Est GFR (Non-Af Amer) BUN/Creatinine Ratio Glucose POC Glucose 76 Calculated Osmolality Uric Acid Calcium Magnesium Iron % Saturation Transferrin Ferritin Total Bilirubin Direct Bilirubin Indirect Bilirubin AST ALT Alkaline Phosphatase Creatine Kinase Serum Total Protein Albumin Globulin Albumin/Globulin Ratio Vitamin B12 Folate Urine Sodium 115.2 3 04/09/18 04/09/18 04/08/18 06:49 06:49 13:16 WBC RBC Hgb Hct MCV MCH MCHC RDW Plt Count MPV Immature Gran % Seg Neutrophils % Lymphocytes % Monocytes % Eosinophils % Basophils % Neutrophils # Lymphocytes # Monocytes # Eosinophils # Basophils # Platelet Estimate Anisocytosis PT 34.2 H 34.4 H INR 3.0 3.0 Sodium 130 L Potassium 4.8 Chloride 112 H Carbon Dioxide 13 L BUN 30 H Creatinine 1.40 H Est GFR ( Amer) > 60 Est GFR (Non-Af Amer) 50 L BUN/Creatinine Ratio 21 Glucose 82 POC Glucose Calculated Osmolality 275 L Uric Acid 9.0 H Calcium 8.1 L Magnesium Iron % Saturation Transferrin Ferritin Total Bilirubin Direct Bilirubin Indirect Bilirubin AST ALT Alkaline Phosphatase Creatine Kinase 16 L Serum Total Protein Albumin Globulin Albumin/Globulin Ratio Vitamin B12 Folate Urine Sodium 3 04/08/18 04/08/18 04/08/18 12:22 12:22 11:21 WBC RBC Hgb Hct MCV MCH MCHC RDW Plt Count MPV Immature Gran % Seg Neutrophils % Lymphocytes % Monocytes % Eosinophils % Basophils % Neutrophils # Lymphocytes # Monocytes # Eosinophils # Basophils # Platelet Estimate Anisocytosis PT INR Sodium Potassium Chloride Carbon Dioxide BUN Creatinine Est GFR ( Amer) Est GFR (Non-Af Amer) BUN/Creatinine Ratio Glucose POC Glucose 102 H Calculated Osmolality Uric Acid Calcium Magnesium Iron 107 % Saturation 76 H Transferrin 101 L Ferritin 956 H Total Bilirubin 0.7 Direct Bilirubin 0.4 H Indirect Bilirubin 0.3 AST 15 ALT 4 L Alkaline Phosphatase 75 Creatine Kinase Serum Total Protein 5.2 L Albumin 2.1 L Globulin 3.1 Albumin/Globulin Ratio 0.7 L Vitamin B12 400 Folate 11.2 Urine Sodium 3 04/08/18 04/08/18 04/08/18 07:20 04:15 04:15 WBC 0.9 L* RBC 2.13 L Hgb 7.7 L Hct 23.0 L MCV 108.0 H MCH 36.2 H MCHC 33.5 RDW 17.4 H Plt Count 55 L MPV 10.2 Immature Gran % 0.0 Seg Neutrophils % 59.6 Lymphocytes % 39.3 Monocytes % 1.1 Eosinophils % 0.0 Basophils % 0.0 Neutrophils # 0.5 L Lymphocytes # 0.4 L Monocytes # 0.0 Eosinophils # 0.0 Basophils # 0.0 Platelet Estimate Decreased L Anisocytosis 1+ A PT INR Sodium 131 L Potassium 5.2 H Chloride 112 H Carbon Dioxide 14 L BUN 29 H Creatinine 1.49 H Est GFR ( Amer) 56 L Est GFR (Non-Af Amer) 46 L BUN/Creatinine Ratio 19 Glucose 87 POC Glucose 91 Calculated Osmolality 277 L Uric Acid Calcium 8.2 L Magnesium 1.3 L Iron % Saturation Transferrin Ferritin Total Bilirubin Direct Bilirubin Indirect Bilirubin AST ALT Alkaline Phosphatase Creatine Kinase Serum Total Protein Albumin Globulin Albumin/Globulin Ratio Vitamin B12 Folate Urine Sodium 3 04/07/18 04/07/18 21:26 21:12 WBC RBC Hgb Hct MCV MCH MCHC RDW Plt Count MPV Immature Gran % Seg Neutrophils % Lymphocytes % Monocytes % Eosinophils % Basophils % Neutrophils # Lymphocytes # Monocytes # Eosinophils # Basophils # Platelet Estimate Anisocytosis PT 33.8 H INR 3.0 Sodium Potassium Chloride Carbon Dioxide BUN Creatinine Est GFR ( Amer) Est GFR (Non-Af Amer) BUN/Creatinine Ratio Glucose POC Glucose 113 H Calculated Osmolality Uric Acid Calcium Magnesium Iron % Saturation Transferrin Ferritin Total Bilirubin Direct Bilirubin Indirect Bilirubin AST ALT Alkaline Phosphatase Creatine Kinase Serum Total Protein Albumin Globulin Albumin/Globulin Ratio Vitamin B12 Folate Urine Sodium - Attending Attestation 1. Progressive macrocytic anemia and pancytopenia and the last 10 days. MCV 110 No evidence of nutritional deficiency. No evidence of hemolysis. No major liver disease Differential diagnoses include bone marrow problems like MDS or bone marrow infection with atypical mycobacterium Recommend bone marrow biopsy to evaluate this further Medications can cause macrocytosis but I am not sure if antituberculous medication can contribute to this We will check for HIV viral hepatitis panel Inpatient Charges Provider: Dr. Alma Cruz Consult Charges: [id number]
[2018-04-08] MEDS: *HR* Warfarin 1 MG TABLET PO SCH (20:23)
[2018-04-08] MEDS: cefTRIAXone 1,000 MG in Water for inj. (sterile) 20 ML 10 ML IVP SCH (21:54)
[2018-04-08] MEDS: Gabapentin 100 MG CAPSULE PO SCH (21:57)
[2018-04-09 07:36] LABS: Prothrombin Time 34.2 Seconds (9.4-12.1)
[2018-04-09 07:46] LABS: BUN/Creatinine Ratio 21 (6-26); Blood Urea Nitrogen 30 mg/dL (8-23); Calcium 8.1 mg/dL (8.6-10.3); Carbon Dioxide 13 mEq/L (23-29); Chloride 112 mEq/L (98-107); Creatine Kinase 16 Units/L (30-223); Glucose 82 mg/dL (70-105); Osmolality,Calculated 275 (280-300); Potassium 4.8 mEq/L (3.5-5.1); Sodium 130 mEq/L (136-145); eGFR For Non-African Americans 50 (> 60)
[2018-04-09] MEDS: CycloSPORINE, Mod (Neoral) 25 MG CAPSULE PO SCH (08:25)
[2018-04-09] MEDS: cefTRIAXone 1,000 MG in Water for inj. (sterile) 20 ML 10 ML IVP SCH (08:25)
[2018-04-09] MEDS: VALGANCICLOVIR 450 MG PO SCH (08:25)
--- NOTE | 2018-04-09 09:36 | Internal Med Progress Note ---
Hospitalist Progress Note - Encounter Date of Encounter: 04/09/18 - Subjective Interval History: Pt states he wants to go home. at bedside. I explained to both pt and his that he presented with sepsis, NEREYDA, and has been hypotensive and could be life threatening if he leaves. Pt denies fever, chills, positive nausea but no vomiting, and no diarrhea. Denies CP or SOB. - Exam Vitals: Temp Pulse Resp BP Pulse Ox 98.6 F 93 16 100/68 99 04/09/18 06:53 04/09/18 06:53 04/09/18 06:53 04/09/18 06:53 04/09/18 06:53 - Assessment and Plan (1) Complicated UTI (urinary tract infection) Current Visit: Yes Status: Acute (2) Hyperkalemia Current Visit: Yes Status: Acute (3) 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 Current Visit: Yes Status: Chronic (4) Leukopenia Current Visit: Yes Status: Acute (5) Thrombocytopenia Current Visit: Yes Status: Acute (6) Renal transplant, status post Current Visit: No Status: Chronic (7) Singultus Current Visit: Yes Status: Acute - Time Spent with Patient Total time spent is greater than 50% in coordination of care (as documented) at patient's floor/unit and/or counseling patient: Internal Medicine: Result - Labs CBC & Chem 7: 04/08/18 04:15 04/09/18 06:49 Labs: BMP 04/09/18 06:49 Sodium 130 L Potassium 4.8 Chloride 112 H Carbon Dioxide 13 L BUN 30 H Creatinine 1.40 H Glucose 82 Calcium 8.1 L Liver Function 04/08/18 Range/Units 12:22 Total Bilirubin 0.7 (0.3-1.0) mg/dL Direct Bilirubin 0.4 H (0.0-0.2) mg/dL AST 15 (13-39) Units/L ALT 4 L (7-52) Units/L Alkaline Phosphatase 75 (34-104) Units/L Albumin 2.1 L (3.5-5.7) g/dL - ABG Interpretation ABG results: PT/INR, D-dimer PT 34.2 Seconds (9.4-12.1) H 04/09/18 06:49 Consult Discharge Plan - Plan Referrals: Ramiro Chavez Jr, MD [Primary Care Provider] - (3) 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 Qualifiers: Affected thrombotic vein of extremity: unspecified vein of extremity Chronicity: acute Qualified Code(s): I82.621 - Acute embolism and thrombosis of deep veins of right upper extremity (4) Leukopenia Qualifiers: Leukopenia type: unspecified Qualified Code(s): D72.819 - Decreased white blood cell count, unspecified
[2018-04-09 09:48] LABS: Hematocrit 21.6 % (37.5-50.1); Hemoglobin 7.1 g/dL (12.9-16.9); Lymphocytes # 0.3 K/mcL (0.6-4.6); Mean Corpuscular HGB Conc 32.9 g/dL (31.6-35.5); Mean Corpuscular Hemoglobin 36.2 pg (28.0-33.3); Mean Corpuscular Volume 110.2 fL (83.0-100.0); Mean Platelet Volume 9.1 fL (9.4-12.4); Red Blood Count 1.96 M/mcL (4.19-5.50); Red Cell Distribution Width 17.7 % (11.5-14.5)
[2018-04-09 10:08] LABS: Platelet Count 41 K/mcL (140-400)
[2018-04-09 10:13] LABS: Anisocytosis 1+ (Not Present); Neutrophils # 0.5 K/mcL (1.6-8.9); Platelet Estimate Decreased (Normal)
--- NOTE | 2018-04-09 10:47 | Oncology Inp Progress Note ---
<Saji Pichardo - Last Filed: 04/09/18 10:45> Date of Encounter: 04/09/18 Time of Encounter: 10:45 (1) Pancytopenia Status: Acute Assessment and plan: Patient presents with pancytopenia white count of 0.9, macrocytic anemia, thrombocytopenia. No evidence of active bleeding. Review the patient's outpatient labs reveals that this is relatively new. Given his macrocytosis there is concern for a primary bone marrow dysfunction. Etiology could be MDS, bone marrow infection with Mycobacterium avium, drug-related bone marrow suppression. Continue to monitor patient labs over the next several days. Count slightly decreased but overall stable. No urgent indication for bone marrow biopsy but if counts continue to decline would recommend bone marrow biopsy. Transfuse keep hemoglobin greater than 7, platelets greater than 10, 000 unless evidence of active bleeding. Agree with plan to transfer to tertiary care facility (2) Immunosuppressed status Status: Acute Assessment and plan: Currently on cyclosporine, cyclosporine level pending. 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 Currently on ethambutol and rifabutin. These medications can cause leukopenia and thrombocytopenia. Given the patient's immunosuppressed status and these medications would consider infectious disease consult. (4) Renal transplant, status post Status: Chronic (5) 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 Status: Chronic Assessment and plan: Per records diagnosed with upper extremity DVT at [facility]. Currently on warfarin. Continue with goal INR of 2.0-3.0. Qualifiers: Affected thrombotic vein of extremity: unspecified vein of extremity Chronicity: acute Qualified Code(s): I82.621 - Acute embolism and thrombosis of deep veins of right upper extremity Oncology: Subj Interval history: Patient seen and examined at bedside. Patient states that he feels a little better today. Has no complaints. Denies any evidence of active bleeding. Denies fever, chills. - Constitutional Vitals: Vital Signs Temp Pulse Resp BP Pulse Ox 04/09/18 06:53 98.6 F 93 16 100/68 99 04/09/18 03:48 98.4 F 98 14 114/67 100 04/08/18 23:23 99.0 F 102 14 119/84 100 09/18/18 22:02 100 04/08/18 19:15 97.8 F 103 14 99/74 100 04/08/18 15:03 98.7 F 73 14 123/78 94 Intake and Output 04/08/18 04/09/18 04/09/18 23:59 07:59 15:59 Intake Total 1734 / 1734 100 / 100 Output Total 100 / 100 0 / 0 Balance 1634 / 1634 100 / 100 Intake: IV Fluids 1614 / 1614 Rocephin 1,000 MG In Water for inj. (sterile) 10 ML @ 600 mls/ hr IVP DAILY [facility] Rx#:[id number] Magnesium Sulfate 2 GM In 0.9 % 104 / 104 Sodium Chloride 100 ML @ 104 mls/hr IVPB ONCE ONE Rx#: [id number] Vancocin 1,000 MG In 0.9 % 250 / 250 Sodium Chloride 250 ML @ 167 mls/hr IVPB Q24H [facility] Rx#: [id number] Oral 120 / 120 100 / 100 Output: Urine 100 / 100 0 / 0 Other: Meal Dinner Percent of Meal Consumed 85% Stool Size Moderate Stool Consistency soft Stool Characteristics Pasty Stool Color Yellow Matthew Colored Pale # Urine Diapers 1 # Bowel Movement Diapers 1 Weight 57.7 kg Blood Glucose* 91 76 Patient Weight 04/09/18 23:59 Weight 57.7 kg General appearance: no acute distress, thin - Respiratory Respiratory exam: Present: decreased breath sounds. Absent: rales, rhonchi - Cardiovascular Cardiovascular exam: Present: RRR. Absent: diastolic murmur, systolic murmur - GI/Abdominal GI/Abdominal exam: Present: soft. Absent: tenderness - Extremities Exam Extremities exam: Absent: pedal edema Oncology: Obj Data - Labs CBC & Chem 7: 04/09/18 07:37 04/09/18 06:49 Labs: Laboratory Results - last 24 hr 04/08/18 04/08/18 04/08/18 12:22 12:22 13:16 WBC RBC Hgb Hct MCV MCH MCHC RDW Plt Count MPV Seg Neutrophils % Lymphocytes % Neutrophils # Lymphocytes # Platelet Estimate Anisocytosis PT 34.4 H INR 3.0 Sodium Potassium Chloride Carbon Dioxide BUN Creatinine Est GFR ( Amer) Est GFR (Non-Af Amer) BUN/Creatinine Ratio Glucose Calculated Osmolality Uric Acid Calcium Iron 107 % Saturation 76 H Transferrin 101 L Ferritin 956 H Total Bilirubin 0.7 Direct Bilirubin 0.4 H Indirect Bilirubin 0.3 AST 15 ALT 4 L Alkaline Phosphatase 75 Creatine Kinase Serum Total Protein 5.2 L Albumin 2.1 L Globulin 3.1 Albumin/Globulin Ratio 0.7 L Vitamin B12 400 Folate 11.2 04/09/18 04/09/18 04/09/18 06:49 06:49 07:37 WBC 0.8 L* RBC 1.96 L Hgb 7.1 L Hct 21.6 L MCV 110.2 H MCH 36.2 H MCHC 32.9 RDW 17.7 H Plt Count 41 L MPV 9.1 L Seg Neutrophils % 62.0 Lymphocytes % 38.0 Neutrophils # 0.5 L Lymphocytes # 0.3 L Platelet Estimate Decreased L Anisocytosis 1+ A PT 34.2 H INR 3.0 Sodium 130 L Potassium 4.8 Chloride 112 H Carbon Dioxide 13 L BUN 30 H Creatinine 1.40 H Est GFR ( Amer) > 60 Est GFR (Non-Af Amer) 50 L BUN/Creatinine Ratio 21 Glucose 82 Calculated Osmolality 275 L Uric Acid 9.0 H Calcium 8.1 L Iron % Saturation Transferrin Ferritin Total Bilirubin Direct Bilirubin Indirect Bilirubin AST ALT Alkaline Phosphatase Creatine Kinase 16 L Serum Total Protein Albumin Globulin Albumin/Globulin Ratio Vitamin B12 Folate - ABG Interpretation ABG results: PT/INR, D-dimer PT 34.2 Seconds (9.4-12.1) H 04/09/18 06:49 Consult Discharge Plan - Plan Referrals: Ramiro Chavez Jr, MD [Primary Care Provider] - <Katarzyna Cruz S - Last Filed: 04/11/18 18:43> Date of Encounter: 04/09/18 Oncology: Obj Data - Labs CBC & Chem 7: 04/09/18 07:37 04/09/18 06:49 Labs: Laboratory Results - last 24 hr 04/09/18 04/09/18 10:41 12:01 POC Glucose 114 H Cyclosporine 2 Hr Post 170.0 - ABG Interpretation ABG results: PT/INR, D-dimer PT 34.2 Seconds (9.4-12.1) H 04/09/18 06:49 Inpatient Charges Provider: Dr. Alma Cruz Follow Up: [id number] - Attending Attestation I examined this patient and my medical decision-making was reviewed with the Advanced Practice Nurse. I agree with the documented findings, disposition and treatment plan as described except to the extent set forth below. 1. Progressive pancytopenia in immunocompromised loss. Differential diagnoses include marrow involvement like MDS versus atypical mycobacterium 2. Status post renal transplant. Admitted with acute kidney injury with creatinine around 2.2. Improved to 1.4 3. Mycobacterium avium infection discitis diagnosis around September 2017 and he is been on antibiotics for that. He is been transferred to [facility] for further management
[2018-04-09] MEDS ORDERED: 0.9 % Sodium Chloride 1,000 ML IVC ONE (11:30)
[2018-04-09] MEDS ORDERED: 0.9 % Sodium Chloride 1,000 ML ONE (11:41)
[2018-04-09 13:52] VITALS: BP 109/64
--- NOTE | 2018-04-09 13:57 | Nephrology Progress Note ---
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 Although serum creatinine does continue to improve, the patient does continue to have a worsening non-anion gap metabolic acidosis and elevated uric acid Given his history the patient should most appropriately be transferred to [facility] promptly for evaluation by transplant contract runner The patient and his are agreeable to this plan, or willing to transfer to [facility] when a bed becomes available Spoke with the hospitalist and with the resident on the Heme/Onc team who are all in agreement, and the hospitalist who agrees to begin the transfer -Agree with hydration as tolerated by the patient -Avoid nephrotoxic agents as able, such as vancomycin -Labs pending (2) Renal transplant, status post Current Visit: No Status: Chronic S/p right renal transplant 04/08/07 Patient is currently treated with cyclosporine 50mg BID Recommend prompt transfer to [facility] for further management (3) Pancytopenia Current Visit: Yes Status: Acute Pancytopenia, etiology unclear however likely mutlifactorial Suspect that this is secondary to medication effect, specifically Rifabutin vs cyclosporin Additionally, infection/sepsis can cause this pancytopenia Given immunosuppressed nature of the patient's condition, best management can be offered at transplant center (4) Urinary tract infection Current Visit: Yes Status: Acute Suspected UTI vs. Transplant Urethritis UA does demonstrate many bacteria, leukocyte esterase The patient has been started on Vancomycin and Rocephin Cultures pending, recommend avoidance of Vancomycin if possible Qualifiers: Urinary tract infection type: site unspecified Hematuria presence: without hematuria Qualified Code(s): N39.0 - Urinary tract infection, site not specified (5) Hyperkalemia Current Visit: Yes Status: Acute Hyperkalemia in setting of NEREYDA which has resolved for the most part Subjective Principal diagnosis: NEREYDA Interval history: Patient is resting comfortably in bed at time of examination. His is accompanying him at bedside. He has no acute complaints this morning. According to his , they are prepared to transfer to [facility] today when a bed becomes available. Objective - Vital Signs Vital signs: Vital Signs Temp Pulse Resp BP Pulse Ox 04/09/18 13:10 109/64 04/09/18 11:28 98.3 F 98 16 82/38 100 04/09/18 06:53 98.6 F 93 16 100/68 99 04/09/18 03:48 98.4 F 98 14 114/67 100 04/08/18 23:23 99.0 F 102 14 119/84 100 04/08/18 22:02 100 04/08/18 19:15 97.8 F 103 14 99/74 100 04/08/18 15:03 98.7 F 73 14 123/78 94 Intake and Output 04/08/18 04/09/18 04/09/18 23:59 07:59 15:59 Intake Total 1734 / 1734 100 / 100 1010 / 1010 Output Total 100 / 100 0 / 0 Balance 1634 / 1634 100 / 100 1010 / 1010 Intake: IV Fluids 1614 / 1614 1010 / 1010 0.9 % Sodium Chloride 1,000 ML 1000 / 1000 @ 999 mls/hr IVC .Q1H1M ONE Rx# :[id number] Rocephin 1,000 MG In Water for inj. (sterile) 10 ML @ 600 mls/ hr IVP DAILY [facility] Rx#:[id number] Magnesium Sulfate 2 GM In 0.9 % 104 / 104 Sodium Chloride 100 ML @ 104 mls/hr IVPB ONCE ONE Rx#: [id number] Vancocin 1,000 MG In 0.9 % 250 / 250 Sodium Chloride 250 ML @ 167 mls/hr IVPB Q24H [facility] Rx#: [id number] Oral 120 / 120 100 / 100 0 / 0 Output: Urine 100 / 100 0 / 0 Other: Meal Dinner Percent of Meal Consumed 85% Stool Size Moderate Stool Consistency soft Stool Characteristics Pasty Stool Color Yellow Matthew Colored Pale # Urine Diapers 1 # Bowel Movement Diapers 1 Weight 57.7 kg Blood Glucose* 91 76 114 Patient Weight 04/09/18 23:59 Weight 57.7 kg - General Appearance Exam: General appearance: well-developed, appears started age, frail EENT: ATNC, mucous membranes moist Neck: no JVD, no thyromegaly, supple Respiratory: no kyphosis, no scoliosis, clear Cardiology: no murmurs, no rub, no gallops, no edema, regular rate, regular rhythm Gastrointestinal: normoactive bowel sounds, no tenderness, no guarding, no organomegaly, no masses Integumentary: no rash, warm and dry Neurologic: no focal deficit, alert and oriented x3 Musculoskeletal: no deformities, no erythema, no cyanosis, no clubbing Psychiatric: mood/affect appropriate, cooperative - Lab 04/09/18 07:37 04/09/18 06:49 Most recent lab results Calcium 8.1 mg/dL (8.6-10.3) L 04/09/18 06:49 Magnesium 1.3 mg/dL (1.6-2.6) L 04/08/18 04:15 Consult Discharge Plan - Plan Referrals: Ramiro Chavez Jr, MD [Primary Care Provider] -
--- NOTE | 2018-04-09 17:25 | Discharge Summary ---
- NOTES TO OUTPATIENT PROVIDER Notes to Outpatient Provider: PCP in 5 to 7 days Orders not resulted at time of discharge: Pending orders 04/08/18 04:31 ECG 12 lead ECG [ECG] Stat 04/09/18 10:41 BK Virus DNA, Quantitative AM 0400 Cyclosporine A 2Hr p Dose (C2) AM 04004/09/18 15:23 Osmolality,Urine [UCHEM] AM 04004/10/18 04:00 PT/INR [Prothrombin Time INR] [COAG] AM 04004/11/18 04:00 PT/INR [Prothrombin Time INR] [COAG] AM 04004/12/18 04:00 PT/INR [Prothrombin Time INR] [COAG] AM 04004/13/18 04:00 PT/INR [Prothrombin Time INR] [COAG] AM 040 Date of Encounter: 04/09/18 Time of Encounter: 17:22 - Discharge Diagnosis (1) Renal transplant, status post Priority: Primary Status: Chronic Assessment and Plan: S/p right renal transplant 04/08/07 Patient is currently treated with cyclosporine 50mg BID Nephrology recommending prompt transfer to [facility] for further management (2) Complicated UTI (urinary tract infection) Priority: Primary Status: Acute Assessment and Plan: Pt has hx of recurrent UTI. Past urine cultures had positive for Klebsiella pneu and Ecoli both of which had been sensitive to cephalosporins. Started on Rocephin on this admission and will continue for now. Awaiting urine sensitivity. Was also given Vancomycin in ED and one dose 04/09/2018 which has been discontinued. Per nephrology suspected UTI vs. transplant Urethritis. Will continue with IV antibiotics. (3) Pancytopenia Priority: Secondary Status: Acute Assessment and Plan: Per oncology, given macrocytosis there is concern for primary bone marrow dysfunction. Differential diagnosis includes MDS, bone marrow infection with mycobacterium avium and or drug related. Pt discussed with [facility] oncologist and states reasonable to admit for further work up. (4) Hyperkalemia Priority: Primary Status: Acute Assessment and Plan: Resolved. Was 5.7 down to 4.8. (5) 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 Priority: Secondary Status: Chronic Assessment and Plan: On Coumadin. INR 3.0. Qualifiers: Affected thrombotic vein of extremity: unspecified vein of extremity Chronicity: acute Qualified Code(s): I82.621 - Acute embolism and thrombosis of deep veins of right upper extremity (6) Singultus Priority: Secondary Status: Acute Assessment and Plan: Pt presented to the ED with 2-3 months history of hiccup which has so far resolved. (7) Immunosuppressed status Priority: Secondary Status: Acute Assessment and Plan: Currently on cyclosporine. 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 Currently on ethambutol and rifabutin. These medications can cause leukopenia and thrombocytopenia. Given the patient's immunosuppressed status and these medications would have consulted infectious disease consult, however since pt is being transferred he may follow up with ID at [facility]. Hospital course: Mr. Muhammad is a 72 year old male past medical history of renal transplant, diabetes not on meds, recurrent UTI, recent dx of RUE DVT at [facility], presented to the ED with 2-3 months history of hiccup. Additional history from his significant other is that he has been gradually getting weaker for the last 2 weeks. Patient denied any chest pain, shortness of breath, cough, sputum production, or abdominal pain but does admit to dribbling, incomplete voiding, and intermittent tingling in burning upon urination. No fever/chills or N/V. Denies any flank pain. No sick contacts. Denies any joint pain or rash. Patient stated that he was recently diagnosed with UTI and was prescribed 5 day course of Augmentin which did not provide any relief. In the ED, he was afebrile and hemodynamically stable. Lab work did showed white blood cell count of 1.3, hemoglobin of 8, platelets 73 , potassium 5.7, Cr 1.73 (baseline shows wide fluctuation between 1-2.1 for the last 6 months), and normal lactic acid. Urinalysis showed moderate amount of leukocyte esterase. Patient was given IV fluid and IV Rocephin and admitted for further management. He was also given One time Dose Vancomycin in ED. Pt evaluated by nephrology due to acute kidney injury on transplanted kidney. Although serum creatinine does continue to improve, the patient does continue to have a worsening non-anion gap metabolic acidosis and elevated uric acid Nephrology recommending that pt be appropriately be transferred to [facility] promptly for evaluation by transplant ux information architect The patient and his are agreeable to this plan, or willing to transfer to [facility] when a bed becomes available Pt was also evaluated by oncology due to pancytopenia. Per oncology, given macrocytosis there is concern for primary bone marrow dysfunction. Differential diagnosis includes MDS, bone marrow infection with mycobacterium avium and or drug related. Pt discussed with [facility] oncologist and states reasonable to admit for further work up. Pt discussed with [facility] transplant ux information architect and they have agreed to accept the patient to transplant unit. Discharge discussed with: patient, family - Time Spent with Patient Total time spent providing and/or coordinating discharge services: Greater than 30 minutes - Discharge Medications Home Medications: Alfuzosin HCl [Uroxatral] 10 mg PO DAILY 04/29/16 [History] CycloSPORINE, Mod (Neoral) [Neoral] 50 mg PO Q12HR 04/29/16 [History] Ethambutol [Myambutol] 400 mg PO QPM 04/07/18 [History] Ethambutol [Myambutol] 600 mg PO QAM 04/07/18 [History] Gabapentin [Neurontin] 100 mg PO HS 04/07/18 [History] Ondansetron HCl [Zofran] 4 mg PO Q8H PRN 04/07/18 [History] OxyCODONE Immed Rel [Roxicodone 10 MG] 10 mg PO Q6H 04/07/18 [History] Rifabutin [Mycobutin] 300 mg PO DAILY 04/07/18 [History] Valganciclovir HCl [Valcyte] 450 mg PO BID 04/07/18 [History] Warfarin [Coumadin] 1 mg PO DAILY 04/07/18 [History] Allergies/Adverse Reactions: 3 Allergy/AdvReac Type Severity Reaction Status Date / Time No Known Allergies Allergy Verified 04/07/18 18:29 Date of admission: 04/07/18 18:05 Primary care physician: Ramiro Chavez Jr, MD Consults: 04/08/18 04:25 Consult to Nutrition [CONS] Routine Comment: Consulting Provider: NUTRITION Reason for Dietary Consult: Other 04/08/18 04:44 Consult to Wound Care [CONS] Routine Reason for Consult: left heel ulcer Call Completed: No 04/08/18 10:52 Consult to Nephrology [CONS] Routine Consulting Provider: Kidney Vanda/KASSIE/ANA/JEROME Reason for Consult: renal decline Time Notified: 10:45 Call Completed: Yes 04/08/18 11:25 Consult to Oncology Hematology [CONS] Routine Consulting Provider: Stefany George Reason for Consult: thrombocytopenia Call Completed: No Discharging clinician: Ginna Benedict Anticipated date of discharge: 04/09/18 - Constitutional Vitals: Temp Pulse Resp BP Pulse Ox 98.3 F 98 16 109/64 99 04/09/18 11:28 04/09/18 16:36 04/09/18 11:28 04/09/18 13:10 04/09/18 16:36 Exam: General: Alert and oriented, not in acute distress. HEENT:EOM, pupils equal, round and reactive. Cardiovascular:Normal S1 & S2, No JVD. Pulse regular. Lungs: clear to auscultation, no wheezes/rales Abdomen:Soft, non-tender, no rigidity. No CVA tenderness Extremities:No deformity or swelling Neurological:Normal cognition and motor skills. Non-focal Skin:Normal color, no rash, no lesions. ? jaundice Pulses:Carotid and radial pulses normal +2. Rest of the physical exam is non contributory - Patient Status Disposition: Transfer Intermediate Care Fac Condition: Fair Overall status at discharge: patient is not back to baseline - Discharge Instructions Follow Up With: Ramiro Chavez Jr, MD [Primary Care Provider] - - Diet and Activity Activity: as per physical therapy Diet: diabetic diet
[2018-04-09] MEDS: *HR* Warfarin 1 MG TABLET PO SCH (17:46)
== END 2018-04-09 19:01 | disposition critical access hospital (66) | DRG 871 ==
LOC: EMEROOARM 12:26 → 3ANU 12:26
PROVIDERS: ADMIT Student in an Organized Health Care Education/Training Program; ATTEND Student in an Organized Health Care Education/Training Program